=== PATIENT | male | born 1985 | race Asian ===

== ENCOUNTER 2017-05-13 13:56 | Emergency (ER) | payer BC ==
[~2017-05-13] VITALS: Ht 170.2 cm; Wt 74.8 kg
[2017-05-13 14:04] VITALS: BP 146/78
== END 2017-05-13 15:12 | disposition home or self-care (01) ==
LOC: ER 14:00
DX: H60.11 Cellulitis of right external ear (principal)
CPT/HCPCS: A4606; Z7502; Z7610